=== PATIENT | male | born 1975 ===

== ENCOUNTER 2018-11-28 10:26 | Emergency (ER) | payer OTHER ==
[2018-11-28 10:26] VITALS: BMI 30.7
[2018-11-28] MEDS ORDERED: Sodium Chloride 0.9% 1,000 ML IV STA (11:31)
[2018-11-28 11:56] LABS: BASO % 0.3 % (0.0-2.0); EOS # 0.3 K/uL (0.0-0.7); EOS % 2.7 % (0.0-4.0); HEMOGLOBIN 15.2 g/dL (12.0-18.0); LYMPH % 21.2 % (20.0-40.0); MEAN CELL VOLUME 88.9 fl (80.0-94.0); MEAN CORPUSCULAR HEMOGLOBIN 30.1 pg (27.0-31.0); MEAN CORPUSCULAR HGB CONC 33.8 g/dL (33.0-37.0); MEAN PLATELET VOLUME 7.6 fl (7.2-11.7); MONO # 0.4 K/uL (0.0-0.8); MONO % 3.7 % (0.0-10.0); NEUT # 6.9 K/uL (1.8-7.0); NEUT % 72.1 % (50.0-75.0); NRBC % 0.1 % (0.0-0.0); RBC 5.05 Mil/uL (4.40-5.90); RED CELL DISTRIBUTION WIDTH 13.5 % (11.5-14.5); WHITE BLOOD COUNT 9.6 K/uL (4.8-10.8)
[2018-11-28 12:25] LABS: ALB/GLOB RATIO 1.1 (1.0-2.1); ALBUMIN 4.3 g/dL (3.5-5.0); ALT/SGPT 51 U/L (21-72); AST/SGOT 30 U/L (17-59); BLOOD UREA NITROGEN 14 mg/dl (9-20); CALCIUM 9.4 mg/dL (8.4-10.2); GFR NON-AFRICAN AMERICAN > 60
[2018-11-28 12:56] LABS: BARBITURATES, UR NEGATIVE (NEGATIVE); BENZODIAZEPINES, UR NEGATIVE (NEGATIVE); OPIATES, UR NEGATIVE (NEGATIVE); PHENCYCLIDINE, UR NEGATIVE (NEGATIVE)
--- NOTE | 2018-11-28 13:12 | CT ---
Date of service: 11/28/2018 PROCEDURE: CT HEAD WITHOUT CONTRAST. HISTORY: severe L headache COMPARISON: None available. TECHNIQUE: Axial computed tomography images were obtained through the head/brain without intravenous contrast. Radiation dose: Total exam DLP = 760.46 mGy-cm. This CT exam was performed using one or more of the following dose reduction techniques: Automated exposure control, adjustment of the mA and/or kV according to patient size, and/or use of iterative reconstruction technique. FINDINGS: HEMORRHAGE: No intracranial hemorrhage. BRAIN: Normal antoine-white matter differentiation and density are appreciated throughout the cerebrum and cerebellum with the brainstem appearing unremarkable as well. There is no mass effect. There is no suspicious extra-axial fluid collection and the midline brain anatomy appears diffusely unremarkable. VENTRICLES: Unremarkable. No hydrocephalus. CALVARIUM: No destructive bony lesion or displaced fracture identified including through the skullbase. PARANASAL SINUSES: Unremarkable as visualized. No significant inflammatory changes. MASTOID AIR CELLS: Moderate right mastoid effusions are identified with none identified at the left. OTHER FINDINGS: None. IMPRESSION: 1. Unremarkable unenhanced head CT. 2. Incidental right mastoid effusions. None identified at the left.
[2018-11-28] MEDS ORDERED: Sodium Chloride 0.9% 50 ML IV ONE (14:00)
[2018-11-28] MEDS ORDERED: Iodixanol 320 MG/ML 100 ML BOTTLE IV ONE (14:00)
--- NOTE | 2018-11-28 14:20 | ED PDOC ---
HPI: Headache Time Seen by Provider: 11/28/18 11:01 Chief Complaint (Nursing): Headache Chief Complaint (Provider): Headache History Per: Patient History/Exam Limitations: no limitations Onset/Duration Of Symptoms: Days, Gradual Current Symptoms Are (Timing): Still Present Preceeding Symptoms: denies: Visual Disturbances, Known Migraine Symptoms Associated Symptoms: Nausea, Vomiting. denies: Photophobia, Blurred Vision Additional History Per: Patient Additional Complaint(s): 43yo male, otherwise well, comes to ER reporting gradual onset left sided headache, present for the past 2-3 days. Patient states he has associated pain behind left eye, but denies any vision changes, redness, discharge or tearing from the eye. He does report several episodes of nausea and vomiting, and states the headache is intermittently present. He denies any neck pain, fever or vomiting. No additional complaints. Patient took Tylenol with minimal relief of symptoms. PMD: None provided Past Medical History Reviewed: Historical Data, Nursing Documentation, Vital Signs - Medical History PMH: Back Problems, HTN (NO MEDS), Migraine Denies: Chronic Kidney Disease - Surgical History Surgical History: No Surg Hx - Family History Family History: States: No Known Family Hx - Immunization History Hx Tetanus Toxoid Vaccination: No Hx Influenza Vaccination: No Hx Pneumococcal Vaccination: No - Home Medications Home Medications: Ambulatory Orders Medication Instructions Recorded Hydrocodone/Acetaminophen [Vicodin 1 each PO TID PRN 3 Days #9 tablet 08/27/18 Es 7.5-300 mg Tablet] Ibuprofen [Motrin Tab] 800 mg PO TID PRN #30 tab 08/27/18 - Allergies Allergies/Adverse Reactions: Allergies Allergy/AdvReac Type Severity Reaction Status Date / Time No Known Allergies Allergy Verified 12/03/17 10:24 Review of Systems ROS Statement: Except As Marked, All Systems Reviewed And Found Negative Constitutional: Negative for: Fever Eyes: Positive for: Pain (behind left eye, associated with headache). Negative for: Vision Change Gastrointestinal: Positive for: Nausea, Vomiting Musculoskeletal: Negative for: Neck Pain Neurological: Positive for: Headache. Negative for: Weakness, Numbness Physical Exam - Reviewed Nursing Documentation Reviewed: Yes Vital Signs Reviewed: Yes - Physical Exam Appears: Positive for: Non-toxic, No Acute Distress Head Exam: Positive for: ATRAUMATIC, NORMAL INSPECTION, NORMOCEPHALIC Skin: Positive for: Normal Color, Warm, Dry Eye Exam: Positive for: Normal appearance, EOMI, PERRL, Other (left eye benign, no lacrimation noted, neg injection or significant photosensitivity). Negative for: Periorbital swelling, Periorbital tenderness, Conjunctival injection, Scleral icterus Neck: Positive for: Supple Cardiovascular/Chest: Negative for: Tachycardia Respiratory: Negative for: Respiratory Distress Extremity: Positive for: Normal ROM Neurological/Psych: Positive for: Awake, Alert, Normal Tone, Symmetric/Intact Strength, Oriented (x 3). Negative for: Motor/Sensory Deficits - Laboratory Results Result Diagrams: 11/28/18 11:40 11/28/18 11:40 Lab Results: Total Bilirubin 0.2 mg/dl (0.2-1.3) 11/28/18 11:40 AST 30 U/L (17-59) 11/28/18 11:40 ALT 51 U/L (21-72) 11/28/18 11:40 Alkaline Phosphatase 87 U/L (38-126) 11/28/18 11:40 Total Protein 8.2 G/DL (6.3-8.2) 11/28/18 11:40 Albumin 4.3 g/dL (3.5-5.0) 11/28/18 11:40 Globulin 3.9 gm/dL (2.2-3.9) 11/28/18 11:40 Albumin/Globulin Ratio 1.1 (1.0-2.1) 11/28/18 11:40 Medical Decision Making Medical Decision Making: CT Head w/o contrast ordered Will give Toradol, IV Fluids and Zofran for headache 1310 CT Head FINDINGS: HEMORRHAGE: No intracranial hemorrhage. BRAIN: Normal natoine-white matter differentiation and density are appreciated throughout the cerebrum and cerebellum with the brainstem appearing unremarkable as well. There is no mass effect. There is no suspicious extra-axial fluid collection and the midline brain anatomy appears diffusely unremarkable. VENTRICLES: Unremarkable. No hydrocephalus. CALVARIUM: No destructive bony lesion or displaced fracture identified including through the skullbase. PARANASAL SINUSES: Unremarkable as visualized. No significant inflammatory changes. MASTOID AIR CELLS: Moderate right mastoid effusions are identified with none identified at the left. OTHER FINDINGS: None. IMPRESSION: 1. Unremarkable unenhanced head CT. 2. Incidental right mastoid effusions. None identified at the left. 1314 GIven quality of headache and persistence, will order CTA Head to r/o aneurysm 3p headache remains, additional medications ordered CTA head d/w Dr Gill radiology, no acute intracranial vascular issue, however air injected during scan, lay L lateral recumbant position. RN informed. Endorse Dr Mcdonald pending re-eval and d/w neurology Scribe Attestation: Documented by Sheeba Huizar acting as a scribe for Lenin Temple DO. Provider Scribe Attestation: All medical record entries made by the Scribe were at my direction and personally dictated by me. I have reviewed the chart and agree that the record accurately reflects my personal performance of the history, physical exam, medical decision making, and the department course for this patient. I have also personally directed, reviewed, and agree with the discharge instructions and disposition. Disposition - Clinical Impression Clinical Impression: Headache - Patient ED Disposition Is Patient to be Admitted: Transfer of Care Counseled Patient/Family Regarding: Studies Performed, Diagnosis, Need For Followup - Disposition Disposition: Transfer of Care Disposition Time: 15:00 Condition: STABLE Forms: Mape (Pashto) Patient Signed Over To: Henry Cortez Handoff Comments: pending re-eval and d/w neurology
--- NOTE | 2018-11-28 15:27 | ED PDOC ---
- Laboratory Results Result Diagrams: 11/28/18 11:40 11/28/18 11:40 Lab Results: Total Bilirubin 0.2 mg/dl (0.2-1.3) 11/28/18 11:40 AST 30 U/L (17-59) 11/28/18 11:40 ALT 51 U/L (21-72) 11/28/18 11:40 Alkaline Phosphatase 87 U/L (38-126) 11/28/18 11:40 Total Protein 8.2 G/DL (6.3-8.2) 11/28/18 11:40 Albumin 4.3 g/dL (3.5-5.0) 11/28/18 11:40 Globulin 3.9 gm/dL (2.2-3.9) 11/28/18 11:40 Albumin/Globulin Ratio 1.1 (1.0-2.1) 11/28/18 11:40 - Progress Re-evaluation Time: 21:00 Condition: Re-examined, Improved Medical Decision Making Medical Decision Making: Time: 15:00 Patient was endorsed to me by Dr. Temple pending CT Angio results and neurology consult. Patient was evaluated at bedside: He is stable but still complaining of a headache. CTA Results: FINDINGS: INTERNAL CEREBRAL ARTERIES: Unremarkable. The skull base, petrous, cavernous and supraclinoid segments are bilaterally widely patent. ANTERIOR CEREBRAL ARTERIES: Unremarkable. A1 and A2 segments are widely patent. Smaller distal branches unremarkable, as visualized. MIDDLE CEREBRAL ARTERIES: Unremarkable. M1 and M2 segments are widely patent. Perisylvian branches grossly symmetric. POSTERIOR CIRCULATION: Basilar Artery: Unremarkable. Distal Vertebral Arteries: Hypoplastic right vertebral artery appreciated. Left dominant vertebrobasilar circulation Posterior Cerebral Arteries: Unremarkable. Posterior Inferior Cerebellar Arteries: Unremarkable. NECK CTA: Aortic Arch: Normal three vessel arch identified. Common Carotid arteries: The bilateral common carotid appear widely patent from their origins to their bifurcations with no significant stenosis appreciated. No evidence to suggest common carotid artery dissection. Internal Carotid arteries: No significant stenosis is appreciated throughout the cervical internal carotid artery segments bilaterally and there is no evidence of dissection either. External Carotid arteries: Appear unremarkable bilaterally. Vertebral arteries: The bilateral vertebral arteries appear patent from their origins to their distal cervical segments. 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 No significant stenosis or definite pattern of dissection. ANEURYSM/ VASCULAR MALFORMATIONS: None. OTHER FINDINGS: There is a mild amount of gas identified in the right subclavian vein in the main pulmonary artery. IMPRESSION: No large vessel occlusion or significant stenosis identified in CT angiography of the head and neck. 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 Given limited gas in the right subclavian vein and main pulmonary artery, it is advised that the patient laying left an acute position in the emergency room in this structure. [address] Rodrigues, who states no MRI needed at this time. Requests Decadron, Depakote, and Magnesium Sulfate - orders placed as requested. Recommends dischagre if improved or admit if persistent headache. Scribe Attestation: Documented by Salina Bridges, acting as a scribe for Henry Cortez MD Provider Scribe Attestation: All medical record entries made by the Scribe were at my direction and personally dictated by me. I have reviewed the chart and agree that the record accurately reflects my personal performance of the history, physical exam, medical decision making, and the department course for this patient. I have also personally directed, reviewed, and agree with the discharge instructions and disposition. Disposition Counseled Patient/Family Regarding: Studies Performed, Diagnosis, Need For Followup - Clinical Impression Clinical Impression: Headache - POA Present On Arrival: None - Disposition Referrals: [facility] [Outside] Chidi Rodrigues MD [Medical Doctor] - Disposition: Routine/Home Disposition Time: 21:18 Condition: GOOD Additional Instructions: LALI PORTILLO, thank you for letting us take care of you today. Your provider was Henry Cortez MD and you were treated for HEADACHE, LT EYE PAIN. The emergency medical care you received today was directed at your acute symptoms. If you were prescribed any medication, please fill it and take as directed. It may take several days for your symptoms to resolve. Return to the Emergency Department if your symptoms worsen, do not improve, or if you have any other problems. Please contact your doctor or call one of the physicians/clinics you have been referred to that are listed on the Patient Visit Information form that is included in your discharge packet. Bring any paperwork you were given at discharge with you along with any medications you are taking to your follow up visit. Our treatment cannot replace ongoing medical care by a primary care provider outside of the emergency department. Thank you for allowing the [facility] team to be part of your care today. If you had an X-Ray or CT scan: A Radiologist will review the ED reading if any change in treatment is needed we will contact you. If you had a blood, urine, or wound culture: It will take several days for the results, if any change in treatment is needed we will contact you. If you had an STI test: It will take 48 hours for the results. Please call after 1 week if you have not heard back. Instructions: Headache, Adult (DC) Forms: [facility]ovo (Cypriot) Print Language: ITALIAN
--- NOTE | 2018-11-28 15:29 | CT ---
Date of service: 11/28/2018 PROCEDURE: CT Angiography of the Brain and Neck. HISTORY: severe L sided headache COMPARISON: None available. TECHNIQUE: CT angiography of the head and neck was performed following intravenous contrast administration. Coronal and sagittal maximum intensity projection reformatted images were generated. Contrast Dose: Visipaque 320, 99 cc Radiation dose: Total exam DLP = 452.7 mGy-cm. This CT exam was performed using one or more of the following dose reduction techniques: Automated exposure control, adjustment of the mA and/or kV according to patient size, and/or use of iterative reconstruction technique. FINDINGS: INTERNAL CEREBRAL ARTERIES: Unremarkable. The skull base, petrous, cavernous and supraclinoid segments are bilaterally widely patent. ANTERIOR CEREBRAL ARTERIES: Unremarkable. A1 and A2 segments are widely patent. Smaller distal branches unremarkable, as visualized. MIDDLE CEREBRAL ARTERIES: Unremarkable. M1 and M2 segments are widely patent. Perisylvian branches grossly symmetric. POSTERIOR CIRCULATION: Basilar Artery: Unremarkable. Distal Vertebral Arteries: Hypoplastic right vertebral artery appreciated. Left dominant vertebrobasilar circulation Posterior Cerebral Arteries: Unremarkable. Posterior Inferior Cerebellar Arteries: Unremarkable. NECK CTA: Aortic Arch: Normal three vessel arch identified. Common Carotid arteries: The bilateral common carotid appear widely patent from their origins to their bifurcations with no significant stenosis appreciated. No evidence to suggest common carotid artery dissection. Internal Carotid arteries: No significant stenosis is appreciated throughout the cervical internal carotid artery segments bilaterally and there is no evidence of dissection either. External Carotid arteries: Appear unremarkable bilaterally. Vertebral arteries: The bilateral vertebral arteries appear patent from their origins to their distal cervical segments. 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 No significant stenosis or definite pattern of dissection. ANEURYSM/ VASCULAR MALFORMATIONS: None. OTHER FINDINGS: There is a mild amount of gas identified in the right subclavian vein in the main pulmonary artery. IMPRESSION: No large vessel occlusion or significant stenosis identified in CT angiography of the head and neck. 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 Given limited gas in the right subclavian vein and main pulmonary artery, it is advised that the patient laying left an acute position in the emergency room in this structure. Findings discussed with Dr. Temple with written down read back verification 11/28/2018 3:10 p.m..
[2018-11-28] MEDS ORDERED: Magnesium Sulfate 2 gm/50 ml 2 GM/50 ML BAG IVPB ONE (15:44)
[2018-11-28] MEDS ORDERED: Valproate 500 MG in Sodium Chloride 0.9% 100 ML IVPB ONE (15:45)
[2018-11-28 16:06] VITALS: RESP 18
[2018-11-28] MEDS ORDERED: Magnesium Sulfate 2 gm/50 ml 2 GM/50 ML BAG ONE (16:59)
[2018-11-28 21:40] VITALS: BP 129/74; PULSE 74; TEMP 98.4; O2SAT 97
== END 2018-11-28 21:52 | disposition home or self-care (01) ==
LOC: H.ER 10:26
DX: R51 Headache (principal); H57.12 Ocular pain, left eye; I10 Essential (primary) hypertension
CPT/HCPCS: 70450; 70496; 70498; 80053; 80324; 80345; 80346; 80349; 80353; 80358; 80361; 83992; 85025; 96365; 96367; 96375; 99284; J1100; J1885; J2405; J2765; J7030; Q9967